=== PATIENT | female | born 2005 ===

== ENCOUNTER 2025-02-13 13:01 | Emergency (ER) | payer BC, SELFPAY ==
[2025-02-13 13:44] LABS: #Basophils 0.03 10x3/uL (0.0-0.2); #Eosinophils 0.23 10x3/uL (0.0-0.7); #Monocytes 0.60 10x3/uL (0.11-0.59); #Neutrophils 6.22 10x3/uL (1.40-6.50); %Basophils 0.3 % (0.0-1.0); %Eosinophils 2.3 % (0.0-10.0); %Lymphocytes 29.6 % (28.0-48.0); %Monocytes 5.9 % (0.0-4.0); %Neutrophils 61.4 % (31.0-61.0); Hematocrit 42.2 % (36.0-47.0); Hemoglobin 12.6 g/dL (12.0-16.0); Mean Corpuscular Hemoglobin 26.1 pg (25.0-35.0); Mean Corpuscular Volume 87.6 fL (78.0-98.0); Platelet Count 414 10x3/uL (130-400); Red Blood Cell (RBC) Count 4.82 mill/uL (4.00-5.20); White Blood Cell (WBC) Count 10.13 10x3/uL (4.8-10.8)
[2025-02-13] MEDS ORDERED: diphenhydrAMINE 50 MG/ML VIAL ONE (14:01)
[2025-02-13] MEDS ORDERED: Metoclopramide HCl 10 MG (2 mL) VIAL ONE (14:01)
[2025-02-13 14:22] LABS: ALT (SGPT) 19 U/L (Less than 34); AST (SGOT) 16 U/L (11-34); BUN (Urea Nitrogen) 7 mg/dL (7.0-18.7)
[2025-02-13 14:23] LABS: Alkaline Phosphatase 77 U/L (40-100); Anion Gap 16 mmol/L (10-20); Bilirubin, Total 0.2 mg/dL (0.3-1.2); Carbon Dioxide 24 mmol/L (22-29); Globulin 4.5 g/dL (2.4-3.5); Glucose 196 mg/dL (70-105)
[2025-02-13 14:24] LABS: Calc. Creatinine Clearance 0 mL/min (70-130)
[2025-02-13 14:31] LABS: Albumin 3.8 g/dL (3.1-4.5); Calcium 9.8 mg/dL (7.8-10.44); Chloride 100 mmol/L (98-107); Potassium 4.5 mmol/L (3.5-5.1); Sodium 135 mmol/L (136-145)
== END 2025-02-13 14:48 | disposition home or self-care (01) ==
LOC: ERS 13:01
DX: R51.9 Headache, unspecified (principal)
CPT/HCPCS: 36415; 70450; 80053; 85025; 96374; 96375; J1200; J2765